=== PATIENT | male | born 1995 | race Caucasian/White ===

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

== ENCOUNTER 2020-07-29 00:02 | Emergency (ER) | payer BC, MEDICAID, OTHER ==
[~2020-07-29] VITALS: Ht 188 cm; Wt 86.2 kg
[2020-07-29 00:06] VITALS: BP 139/85
== END 2020-07-29 04:54 | disposition home or self-care (01) ==
LOC: ER 00:05
DX: S62.312A Displaced fracture of base of third metacarpal bone, right hand, initial encounter for closed fracture (principal); S63.501A Unspecified sprain of right wrist, initial encounter; Z88.2 Allergy status to sulfonamides; Z88.0 Allergy status to penicillin; W22.8XXA Striking against or struck by other objects, initial encounter; Y93.89 Activity, other specified; Y92.89 Other specified places as the place of occurrence of the external cause; Y99.8 Other external cause status
CPT/HCPCS: 29125; 73110; 73130; 73200